=== PATIENT | male | born 1955 ===

== ENCOUNTER 2023-09-23 06:00 | Day surgery (SDC) | payer OTHER ==
[2023-09-23] MEDS ORDERED: DIPHENHYDRAMINE HCL 50 MG/ML VIAL 1ML IV ONE (12:45)
[2023-09-23] MEDS ORDERED: fentaNYL CITRATE 50 MCG/ML AMPUL IV PUSH ONE (12:45)
[2023-09-23] MEDS ORDERED: MIDAZOLAM HCL 2 MG/2 ML VIAL IV ONE (12:45)
[2023-09-23] MEDS ORDERED: FLUMAZENIL 0.5 MG/5ML ML IV ONE (14:30)
== END 2023-09-23 14:45 | disposition home or self-care (01) ==
LOC: AMB-ENDOS 06:00
PROVIDERS: ATTEND Surgery
DX: D12.3 Benign neoplasm of transverse colon (principal)